=== PATIENT | male | born 1925 | race Caucasian/White ===

== ENCOUNTER 2017-01-26 21:49 | Emergency (ER) | payer OTHER, MEDICARE ==
[~2017-01-26] VITALS: Ht 165.1 cm; Wt 58.1 kg
[~2017-01-26 21:49] MED LIST: ALBUTEROL 3 ML3 ML INH; ALLOPURINOL100 MG PO; ASPIRIN CHILDRE81 MG PO; ATORVASTATIN CA10 MG PO; CLOPIDOGREL75 MG PO; ELIQUIS2.5 MG PO; LISINOPRIL2.5 MG PO; LOPRESSOR 25MG25 MG PO; MELATIN3 MG PO; METOPROLOL TART25 M1 PO; MUCINEX FAST-M1 EA12 PO; PERCOCET 325 MG1 TA2 PO; PLAVIX75 M1 PO; PRILOSEC 20MG C20 MG PO; ROBITUSSIN COUG1 SGL PO; Robitussin PO; SYMBICORT 80/4.1 PUF INH; VITAMIN B-12500 MC2 PO; VITAMIN D250000 UNIT PO; XANAX0.25 M1 PO
--- NOTE | 2017-01-27 00:28 | ED HEAD/FACIAL INJ COMPLAINT ---
History of Present Illness General Chief Complaint: Headache Stated Complaint: HIT HEAD -LOC Source: patient Exam Limitations: no limitations Vital Signs & Intake/Output Vital Signs & Intake/Output Vital Signs Date Time Temp Pulse Resp B/P B/P Pulse O2 O2 Flow FiO2 Mean Ox Delivery Rate 01/26 2226 97.7 57 18 175/78 97 Room Air ED Intake and Output 01/27 0000 01/26 1200 Intake Total Output Total Balance Patient 128 lb Weight Weight Reported by Patient Measurement Method Allergies Coded Allergies: NO KNOWN ALLERGIES (03/23/16) Reconcile Medications Albuterol Sulfate (Proventil) 2.5 MG/3 ML NEB 3 ML INH Q4P PRN WHEEZING administer for wheezing as needed 10/03-10/08/14. Allopurinol 100 MG TAB 1 TAB PO DAILY GOUT (Reported) Alprazolam (Xanax) 0.25 MG TABLET 1 TAB PO AT BEDTIME PRN sleep (Reported) Aspirin (Children's Aspirin) 81 MG TAB.CHEW 1 TAB PO DAILY HEART HEALTH ( Reported) Atorvastatin Calcium (Lipitor) 10 MG TABLET 1 TAB PO DAILY CHOLESTEROL ( Reported) Budesonide/Formoterol Fumara (Symbicort 80-4.5 Mcg Inhaler) 80 MCG/4.5 MCG PUF 2 PUF INH BID PRN wheezing please take for wheezing as needed from 10/03 - 10/08/14. Clopidogrel Bisulfate (Plavix) 75 MG TABLET 1 TAB PO D cad (Reported) Cyanocobalamin (Vitamin B-12) (Vitamin B-12) 500 MCG TABLET 1 TAB PO D supplement (Reported) Ergocalciferol (Vitamin D2) (Vitamin D2) 50,000 UNIT CAPSULE 1 TAB PO ONCE A WEEK vitamin d deficiency (Reported) Guaifen/Phenyleph/Acetaminophn (Mucinex Fast-Max Cold-Sinus Tb) 1 EACH TABLET 1 TAB PO BID COUGH GUAIFENESIN/DEXTROMETHORPHAN (Robitussin Wslou-Picoc-Vaet Dm) 1 EACH CAPSULE 2 TAB PO Q4-6P PRN cough Lisinopril 2.5 MG TABLET 1 TAB PO DAILY BP (Reported) Melatonin (Melatin) 3 MG TABLET 1 TAB PO AT BEDTIME sleep (Reported) Omeprazole (Prilosec) 20 MG CAPSULE.DR 40 MG PO DAILY AC PRN heartburn/acid reflux [Robitussin] 10 ML PO Q6P PRN COUGH Triage Note: PT TO TRIAGE FROM [facility] 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 PT DENIES LOC, NO LAC, SMALL BUMP TO BACK OF HEAD NOTED. VSS. NO OTHER COMPLAINTS. PT CURRENTLY ON CLOPIDOGREL. Triage Nurses Notes Reviewed? yes HPI: Patient presents for evaluation of injury sustained status post fall at about 8: 30 this evening. Patient states he felt backwards because he thought there was a wall that he could lean up against. He states however that he has bad vision and is legally blind. He states sometimes he does think that there is a wall present but it is not. He fell onto a carpeted floor receiving a lump on the back of the head. He denies loss of consciousness. He currently denies any pain at all. He did have transient pain in the occipital region but that has resolved. Denies any alcohol use at this point. Past History Travel History Traveled to [place] past 21 day No Medical History Any Pertinent Medical History? see below for history Neurological: dementia EENT: NONE Cardiovascular: CAD, hypertension, A FIB 7 stents RIGHT CAROTID BLOCKED Respiratory: NONE Gastrointestinal: acid reflex Hepatic: NONE Renal: NONE Musculoskeletal: NONE Psychiatric: NONE Endocrine: NONE Blood Disorders: NONE Cancer(s): NONE INDIAN TRADER/Reproductive: NONE History of MRSA: No History of VRE: No History of CDIFF: No Surgical History Surgical History: 7 cardiac stents Psychosocial History Who do you live with Patient/Self Services at Home None What is your primary language Montserratian Tobacco Use: Never used Family History Hx Contributory? No Review of Systems Review of Systems Constitutional: Reports: no symptoms. EENTM: Reports: no symptoms. Respiratory: Reports: no symptoms. Cardiovascular: Reports: no symptoms. GI: Reports: no symptoms. Genitourinary: Reports: no symptoms. Musculoskeletal: Reports: no symptoms. Skin: Reports: see HPI. Neurological/Psychological: Reports: no symptoms. Hematologic/Endocrine: Reports: no symptoms. Immunologic/Allergic: Reports: no symptoms. All Other Systems: Reviewed and Negative Physical Exam Physical Exam General Appearance: SEE BELOW Cranial Nerves: SEE BELOW Comments: Gen.: Well-nourished, well-developed, no acute respiratory distress. Head: Normocephalic, half-dollar sized round soft tissue swelling of the apex of the head Eyes: Normal inspection bilaterally, antonina, EOMI Ears: Normal inspection bilaterally, no elias sign Nose: Normal inspection Throat/mouth : Moist mucosa Neck: Supple, full range of motion, no goiter, nontender Heart: Regular rate and rhythm, no murmurs rubs or gallops Lungs: Clear to auscultation bilaterally with normal air entry Chest: Nontender Back: Normal range of motion, nontender, kyphosis present Abdomen: Soft, nontender, nondistended, normal bowel sounds Pelvis: Stable and nontender Extremities: Normal range of motion grossly, no tenderness, no cyanosis clubbing or edema Neurologic: Cranial nerves grossly intact, speech is clear Skin: warm and dry and without ecchymoses or soft tissue swelling or erythema Psychiatric: Calm, cooperative, no apparent delusions or hallucinations Diagram Head: 1) AREA OF STS Progress Differential Diagnosis: c-spine injury, skull fracture Plan of Care: Orders Procedure Date/time Status CT HEAD WO IV CONTRAST 01/[address] CERV SPINE WO IV CONTRAST 01/27 27 Active Diagnostic Imaging: Discussed w/RAD: CT Scan. Radiology Impression: PATIENT: ZACH PORTER PRESENT AGE: 89 PATIENT ACCOUNT NO: [id number] : 10/24/27 LOCATION: [facility] ORDERING PHYSICIAN: CHEVY HAHN MD SERVICE DATE: 01/27/17 EXAM TYPE: CAT - CT CERV SPINE WO IV CONTRAST; CT HEAD WO IV CONTRAST CT HEAD WITHOUT IV CONTRAST CT CERVICAL SPINE WITHOUT IV CONTRAST INDICATION: Fall with apical scalp soft tissue swelling. COMPARISON: None available. TECHNIQUE: Multidetector CT acquisitions of the head and cervical spine were obtained without IV contrast. Multiplanar reformats were acquired and utilized for image interpretation. FINDINGS: HEAD: Global cerebral volume loss. There is no intracranial hemorrhage, hydrocephalus, extra-axial surface collection, midline shift, or other herniation pattern. Meeyr to white matter differentiation is diffusely maintained without evidence of an evolved acute territorial infarct. The basilar cisterns are preserved. High left scalp soft tissue swelling. No acute osseous abnormality. The paranasal sinuses and the mastoid air cells are well-aerated. CERVICAL SPINE: There is degenerative appearing mild anterolisthesis of C7 on T1. There is moderate disc space loss at C3-C4 and C6- C7 there is severe disc space loss at C4-C5 and C5-C6. Endplate osteophytosis. Multilevel facet arthropathy. There is no acute fracture and there is no acute subluxation. The craniocervical and atlantoaxial articulations are normal. There is no prevertebral soft tissue swelling. No significant soft tissue abnormality within the neck. The visualized lung apices are clear. IMPRESSION: 1. No acute intracranial abnormality. Global cerebral volume loss. High left scalp soft tissue swelling. 2. No acute osseous abnormality within the cervical spine. Cervical spondylosis. DICTATED BY: CHEVY CARRASCO MD DATE/TIME DICTATED:218 GRANULATING MACHINE OPERATOR:LISHA DATE/TIME TRANSCRIBED:01/27/17218 CONFIDENTIAL, DO NOT COPY WITHOUT APPROPRIATE AUTHORIZATION. <Electronically signed in Other Vendor System> SIGNED BY: CHEVY CARRASCO MD 01/27/17229 Departure Departure Disposition: HOME OR SELF CARE Condition: Stable Clinical Impression Primary Impression: Neck strain Qualifiers: Encounter type: initial encounter Qualified Code: S16.1XXA - Strain of muscle, fascia and tendon at neck level, initial encounter Secondary Impressions: Fall Qualifiers: Encounter type: initial encounter Qualified Code: W19.XXXA - Unspecified fall, initial encounter Scalp hematoma Qualifiers: Encounter type: initial encounter Qualified Code: S00.03XA - Contusion of scalp, initial encounter Referrals: CHIQUIS CERON MD (PCP/Family) Additional Instructions: Ice to any areas of swelling. Tylenol as needed for pain. Follow-up with your primary care physician in one week. Return if any concerns or sudden worsening. Please note that there might be incidental findings in your evaluation that are unrelated to the current emergency department visit. Please notify your primary care doctor about this emergency department visit in order to obtain and review all of the testing performed so that these incidental findings can be monitored as needed. If you had an x-ray performed, please understand that some fractures may not be seen on the initial set of x-rays. If your symptoms persist you might need a repeat set of x-rays to check for such a fracture. If you had a laceration evaluated, please understand that foreign bodies such as glass or wood may not be visible to the naked eye or on plain x-rays. If the wound becomes red, swollen, increasingly more painful or if there is any drainage from the wound, please have it reevaluated by a physician for the possibility of a retained foreign body. Thank you for choosing the [facility] Emergency Department for your care. It was a pleasure to serve you today. Chevy Hahn M.D. [facility] Departure Forms: Customer Survey General Discharge Information
--- NOTE | 2017-01-27 02:30 | CT SCAN REPORT ---
CT HEAD WITHOUT IV CONTRAST CT CERVICAL SPINE WITHOUT IV CONTRAST INDICATION: Fall with apical scalp soft tissue swelling. COMPARISON: None available. TECHNIQUE: Multidetector CT acquisitions of the head and cervical spine were obtained without IV contrast. Multiplanar reformats were acquired and utilized for image interpretation. FINDINGS: HEAD: Global cerebral volume loss. There is no intracranial hemorrhage, hydrocephalus, extra-axial surface collection, midline shift, or other herniation pattern. Meyer to white matter differentiation is diffusely maintained without evidence of an evolved acute territorial infarct. The basilar cisterns are preserved. High left scalp soft tissue swelling. No acute osseous abnormality. The paranasal sinuses and the mastoid air cells are well-aerated. CERVICAL SPINE: There is degenerative appearing mild anterolisthesis of C7 on T1. There is moderate disc space loss at C3-C4 and C6-C7 there is severe disc space loss at C4-C5 and C5-C6. Endplate osteophytosis. Multilevel facet arthropathy. There is no acute fracture and there is no acute subluxation. The craniocervical and atlantoaxial articulations are normal. There is no prevertebral soft tissue swelling. No significant soft tissue abnormality within the neck. The visualized lung apices are clear. IMPRESSION: 1. No acute intracranial abnormality. Global cerebral volume loss. High left scalp soft tissue swelling. 2. No acute osseous abnormality within the cervical spine. Cervical spondylosis.
[2017-01-27 03:03] VITALS: BP 185/85
== END 2017-01-27 03:07 ==
LOC: ERH 21:49
DX: S16.1XXA Strain of muscle, fascia and tendon at neck level, initial encounter (principal); S00.03XA Contusion of scalp, initial encounter; W19.XXXA Unspecified fall, initial encounter; Y92.9 Unspecified place or not applicable; Y93.9 Activity, unspecified

== ENCOUNTER 2017-01-29 04:56 | Emergency (ER) | payer OTHER, MEDICARE ==
[~2017-01-29] VITALS: Ht 177.8 cm; Wt 72.6 kg
--- NOTE | 2017-01-29 05:27 | ED CARDIAC/CP/PALPITATIONS ---
See Addendum History of Present Illness General Chief Complaint: Chest Pain Stated Complaint: BIBA FOR CP Source: patient, family, old records, EMS Exam Limitations: no limitations Vital Signs & Intake/Output Vital Signs & Intake/Output Vital Signs Date Time Temp Pulse Resp B/P B/P Pulse O2 O2 Flow FiO2 Mean Ox Delivery Rate 01/29 0457 97.4 55 18 124/80 95 Room Air Allergies Coded Allergies: NO KNOWN ALLERGIES (03/23/16) Reconcile Medications Albuterol Sulfate (Proventil) 2.5 MG/3 ML NEB 3 ML INH Q4P PRN WHEEZING administer for wheezing as needed 10/03-10/08/14. Allopurinol 100 MG TAB 1 TAB PO DAILY GOUT (Reported) Alprazolam (Xanax) 0.25 MG TABLET 1 TAB PO AT BEDTIME PRN sleep (Reported) Aspirin (Children's Aspirin) 81 MG TAB.CHEW 1 TAB PO DAILY HEART HEALTH ( Reported) Atorvastatin Calcium (Lipitor) 10 MG TABLET 1 TAB PO DAILY CHOLESTEROL ( Reported) Budesonide/Formoterol Fumara (Symbicort 80-4.5 Mcg Inhaler) 80 MCG/4.5 MCG PUF 2 PUF INH BID PRN wheezing please take for wheezing as needed from 10/03 - 10/08/14. Clopidogrel Bisulfate (Plavix) 75 MG TABLET 1 TAB PO D cad (Reported) Cyanocobalamin (Vitamin B-12) (Vitamin B-12) 500 MCG TABLET 1 TAB PO D supplement (Reported) Ergocalciferol (Vitamin D2) (Vitamin D2) 50,000 UNIT CAPSULE 1 TAB PO ONCE A WEEK vitamin d deficiency (Reported) Guaifen/Phenyleph/Acetaminophn (Mucinex Fast-Max Cold-Sinus Tb) 1 EACH TABLET 1 TAB PO BID COUGH GUAIFENESIN/DEXTROMETHORPHAN (Robitussin Mfjvc-Lrorj-Dazp Dm) 1 EACH CAPSULE 2 TAB PO Q4-6P PRN cough Lisinopril 2.5 MG TABLET 1 TAB PO DAILY BP (Reported) Melatonin (Melatin) 3 MG TABLET 1 TAB PO AT BEDTIME sleep (Reported) Omeprazole (Prilosec) 20 MG CAPSULE.DR 40 MG PO DAILY AC PRN heartburn/acid reflux [Robitussin] 10 ML PO Q6P PRN COUGH Core Measure Meds Pre-Hospital aspirin Triage Note: PT BIBA FROM [facility]. PT STATES HE EXPERIENCED 5 MINUTES OF SHARP MID-STERNAL CP, NON-RADIATING. PT DENIES FEELING NAUSEOUS, DIAPHORETIC. ALL PAIN RELIEVED ON ITS OWN. Triage Nurses Notes Reviewed? yes Onset: Just prior to arrival Duration: minute(s):, continues in ED, waxing and waning Timing: recent history Quality/Severity: severe, tightness Location: substernal Radiation: no radiation Activities at Onset: sleep Prior Chest Pain/Card Workup: cardiac cath, echocardiography, heart attack, stress test Modifying Factors: Improves With: rest. Nitro Today/Relief: no nitro taken today Aspirin Today: no aspirin today HPI: One and one half hours prior to admission patient awoke with severe chest tightness similar to previous [place] pain nonradiating waxing and waning lasting 5 minutes resolved with rest no change with ambulation. He denies fever chills nausea vomiting diarrhea abdominal pain shortness of breath headache dysuria rash bleeding dizziness. Past History Travel History Traveled to [place] past 21 day No Medical History Any Pertinent Medical History? see below for history Neurological: dementia EENT: NONE Cardiovascular: CAD, hypertension, A FIB 7 stents RIGHT CAROTID BLOCKED Respiratory: NONE Gastrointestinal: acid reflex Hepatic: NONE Renal: NONE Musculoskeletal: NONE Psychiatric: NONE Endocrine: NONE Blood Disorders: NONE Cancer(s): NONE RECRUITMENT INTERNSHIP/Reproductive: NONE History of MRSA: No History of VRE: No History of CDIFF: No Surgical History Surgical History: 7 cardiac stents Psychosocial History Who do you live with Patient/Self Services at Home None What is your primary language Syriac Tobacco Use: Current Not Daily Family History Hx Contributory? No Review of Systems Review of Systems Constitutional: Reports: no symptoms. EENTM: Reports: no symptoms. Respiratory: Reports: no symptoms. Cardiovascular: Reports: see HPI, chest pain. GI: Reports: no symptoms. Genitourinary: Reports: no symptoms. Musculoskeletal: Reports: no symptoms. Skin: Reports: no symptoms. Neurological/Psychological: Reports: no symptoms. Hematologic/Endocrine: Reports: no symptoms. Immunologic/Allergic: Reports: no symptoms. All Other Systems: Reviewed and Negative Physical Exam Physical Exam General Appearance: well developed/nourished, alert, awake, anxious, mild distress Head: atraumatic, normal appearance Eyes: Bilateral: normal appearance, PERRL, EOMI. Ears, Nose, Throat: normal pharynx, normal ENT inspection Neck: normal inspection, supple, full range of motion, no midline tenderness Respiratory: normal breath sounds, chest non-tender, no respiratory distress, quiet respiration, lungs clear Cardiovascular: regular rate/rhythm, murmur, normal peripheral pulses, norml femoral pulses equa Peripheral Pulses: 4+ carotid (R), 4+ carotid (L) Gastrointestinal: normal bowel sounds, soft, non-tender, no organomegaly Back: normal inspection, normal range of motion Extremities: normal inspection, normal capillary refill, normal range of motion, no edema Neurologic/Psych: no motor/sensory deficits, awake, alert, oriented x 3, normal mood/affect, 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 Skin: intact, normal color, warm/dry Lymphatic: no anterior cervical [place] Core Measures ACS in differential dx? Yes ASA ordered for poss ACS? Yes-ordered Severe Sepsis Present: No Septic Shock Present: No Progress Differential Diagnosis: AMI, CHF/pulm edema, costochondritis, hyperkalemia, pneumonia Plan of Care: Orders Procedure Date/time Status TROPONIN LEVEL 01/29 0930 Active TROPONIN LEVEL 01/29 05 Complete COMPREHENSIVE METABOLIC PANEL 01/29 519 Complete CBC WITHOUT DIFFERENTIAL 01/29 519 Complete EKG 01/29 0457 Active Laboratory Tests 01/29/17 0536: Anion Gap 8, Estimated GFR > 60, BUN/Creatinine Ratio 27.1 H, Glucose 84, Calcium 8.5, Total Bilirubin 0.3, AST 45, ALT 62, Alkaline Phosphatase 88, Troponin I 0.02, Total Protein 5.8 L, Albumin 3.2 L, Globulin 2.6, Albumin/ Globulin Ratio 1.2, CBC w Diff NO MAN DIFF REQ, RBC 3.91 L, MCV 89.3, MCH 29.0, RDW 19.0 H, MPV 7.8, Gran % 60.3, Lymphocytes % 25.2, Monocytes % 10.2 H, Eosinophils % 3.4, Basophils % 0.9, Absolute Granulocytes 1.7, Absolute Lymphocytes 0.7 L, Absolute Monocytes 0.3, Absolute Eosinophils 0.1, Absolute Basophils 0, PUBS MCHC 32.5 L Diagnostic Imaging: Viewed by Me: Radiology Read. Discussed w/RAD: Radiology Read. CXR Impression: no acute abnormality, no infiltrates Initial ED EKG: normal axis, normal intervals, normal p-waves, normal QRS complex, normal sinus rhythm, nonspecific ST T wave chg Prior EKG: unchanged Rhythm Strip: normal sinus rhythm Hand-Off Endorsed To: JONATHAN ASHFORD MD Endorsed Time: 0700 Pending: labs (troponin #[id number]) Departure Departure Disposition: STILL A PATIENT Condition: Stable Clinical Impression Primary Impression: Chest pain syndrome Referrals: DANNIE KENNEY,SHILPA CERON MD,CHIQUIS (PCP/Family) Departure Forms: Customer Survey General Discharge Information Critical Care Note Critical Care Note Critical Care Time: non-applicable
[2017-01-29 05:52] LABS: ABSOLUTE BASOPHIL COUNT 0 /CUMM (0.0-0.2); ABSOLUTE EOSINOPHIL COUNT 0.1 /CUMM (0.0-0.7); ABSOLUTE GRANULOCYTE CT 1.7 /CUMM (1.4-6.5); ABSOLUTE LYMPH COUNT 0.7 /CUMM (1.2-3.4); ABSOLUTE MONOCYTE COUNT 0.3 /CUMM (0.10-0.60); BASOPHIL % 0.9 % (0.0-2.0); EOSINOPHIL % 3.4 % (0-5); GRANULOCYTE % 60.3 % (42.2-75.2); HEMATOCRIT 34.9 % (42-52); MEAN CORPUSCULAR HGB CONC 32.5 G/DL (33.0-37.0); MEAN CORPUSCULAR VOLUME 89.3 FL (80.0-94.0); MEAN PLATELET VOLUME 7.8 FL (7.4-10.4); PLATELET COUNT 155 /CUMM (130-400); RED BLOOD CELL CT 3.91 /CUMM (4.70-6.10); WHITE BLOOD CELL COUNT 2.8 /CUMM (4.8-10.8)
--- NOTE | 2017-01-29 06:04 | RADIOLOGY REPORT ---
EXAMINATION: XR PORTABLE CHEST CLINICAL INFORMATION: Chest pain. COMPARISON: Chest x-ray March 23, 2016. TECHNIQUE: Portable frontal view of the chest was obtained. FINDINGS: Prominent right paratracheal opacity corresponds to very tortuous vascular on the previous cervical spine CT that included this area. No focal consolidation, pleural effusion, or pneumothorax. Cardiac silhouette and osseous structures are stable. There are no acute osseous findings. There are several old healed bilateral rib fractures. IMPRESSION: - No acute pulmonary process. - Stable right upper paratracheal opacity corresponding to known vascular tortuosity/ectasia.
[2017-01-29 10:36] VITALS: BP 115/74
== END 2017-01-29 10:38 ==
LOC: ERH 04:56
PROVIDERS: Emergency Medicine
DX: R07.89 Other chest pain (principal)
CPT/HCPCS: 93005; 93010